=== PATIENT | male | born 1955 ===

== ENCOUNTER 2022-10-05 17:46 | Emergency (ER) | payer MEDICARE, OTHER ==
[2022-10-05] MEDS ORDERED: Sodium Chloride 0.9% 10 ML Syringe FLUSH PRN (18:30)
[2022-10-05 18:35] LABS: BASOPHILS PERCENT AUTO 0.3 % (0.0-1.0); EOSINOPHILS PERCENT AUTO 0.4 % (1.0-3.0); HEMATOCRIT 37.2 % (40.0-54.0); HEMOGLOBIN 12.9 g/dL (14.0-18.0); LYMPHOCYTES PERCENT AUTO 22.4 % (20.5-50.1); MEAN CORPUSCULAR HEMOGLOBIN 31.6 pg (27.0-34.0); MEAN CORPUSCULAR HGB CONC 34.7 g/dL (33.0-35.0); MEAN CORPUSCULAR VOLUME 91.2 fL (80-100); NEUTROPHILS PERCENT AUTO 67.9 % (42.2-75.2); PLATELET COUNT,PLT 376 10^3/uL (150-450); RED BLOOD CELL COUNT 4.08 10^6/uL (4.6-6.2); WHITE BLOOD CELL COUNT,WBC 9.3 10^3/uL (5.0-10.0)
[2022-10-05 18:54] LABS: A/G RATIO 1.1; ALBUMIN 3.9 g/dL (3.4-5.0); ANION GAP 14.6 mEq/L (7-13); BILIRUBIN TOTAL 0.6 mg/dL (0.2-1.0); BUN/CREATININE RATIO 9.9 (No establ ref range); CALCIUM 8.7 mg/dL (8.5-10.1); CREATININE 1.01 mg/dL (0.70-1.30); EST CRCL DRUG DOSING (CG) 77.9 mL/min; MAGNESIUM 1.9 mg/dL (1.8-2.4); POTASSIUM,K 3.6 mmol/L (3.5-5.1); PROTEIN TOTAL,TP 7.5 g/dL (6.4-8.2); TSH ULTRASENSITIVE 1.5 uIU/mL (0.36-3.74)
[2022-10-05 18:57] LABS: APPEARANCE,URINE CLEAR (CLEAR); BILIRUBIN,URINE NEGATIVE (NEGATIVE); COLOR,URINE YELLOW (YELLOW); GLUCOSE,URINE NEGATIVE (NEGATIVE); KETONES,URINE NEGATIVE (NEGATIVE); LEUKOCYTE ESTERASE,URINE NEGATIVE (NEGATIVE); NITRITE,URINE NEGATIVE (NEGATIVE); OCCULT BLOOD,URINE NEGATIVE (NEGATIVE); PROTEIN,URINE NEGATIVE (NEGATIVE)
[2022-10-05] MEDS ORDERED: Metoprolol Tartrate 5 MG/5 ML SDV IVPUSH ONE (19:02)
[2022-10-05] MEDS ORDERED: Labetalol 20 MG/4 ML Syringe IVPUSH ONE ×2 (19:39→20:42)
[2022-10-05] MEDS ORDERED: Sodium Chloride 0.9% 1,000 ML IV ONE (19:39)
== END 2022-10-05 21:17 | disposition home or self-care (01) ==
LOC: DL.ED 17:46
DX: I15.9 Secondary hypertension, unspecified (principal); Z87.891 Personal history of nicotine dependence
CPT/HCPCS: 36415; 71045; 80053; 81003; 83735; 84443; 84484; 85025; 85379; 93005; 93010; 96361; 96374; 96375; 96376; 99284; J3490; J7030

== ENCOUNTER 2022-10-06 07:55 | Emergency (ER) | payer MEDICARE, OTHER | END 2022-10-06 09:19 | disposition home or self-care (01) | LOC: DL.ED 07:55 | DX: I15.9 Secondary hypertension, unspecified (principal); G44.89 Other headache syndrome; D64.9 Anemia, unspecified; Z86.16 Personal history of COVID-19; Z79.899 Other long term (current) drug therapy | CPT/HCPCS: 99283 ==

== ENCOUNTER 2022-10-31 09:53 | Emergency (ER) | payer MEDICARE, OTHER | END 2022-10-31 12:15 | disposition home or self-care (01) | LOC: DL.ED 09:53 | DX: I15.9 Secondary hypertension, unspecified (principal); Z79.899 Other long term (current) drug therapy; Z86.16 Personal history of COVID-19 | CPT/HCPCS: 93976; 99284 ==

== ENCOUNTER 2022-12-03 19:25 | Emergency (ER) | payer MEDICARE, OTHER ==
[2022-12-03] MEDS ORDERED: Sodium Chloride 0.9% 10 ML Syringe FLUSH PRN (19:59)
[2022-12-03 20:05] LABS: BASOPHILS PERCENT AUTO 0.6 % (0.0-1.0); EOSINOPHILS PERCENT AUTO 1.2 % (1.0-3.0); HEMOGLOBIN 12.4 g/dL (14.0-18.0); MEAN CORPUSCULAR HEMOGLOBIN 30.8 pg (27.0-34.0); MEAN CORPUSCULAR HGB CONC 33.5 g/dL (33.0-35.0); MEAN CORPUSCULAR VOLUME 91.8 fL (80-100); MONOCYTES PERCENT AUTO 10.6 % (2-8); NEUTROPHILS PERCENT AUTO 58.6 % (42.2-75.2); PLATELET COUNT,PLT 361 10^3/uL (150-450); RED BLOOD CELL COUNT 4.03 10^6/uL (4.6-6.2); WHITE BLOOD CELL COUNT,WBC 6.6 10^3/uL (5.0-10.0)
[2022-12-03 20:23] LABS: A/G RATIO 1.1; ANION GAP 13.9 mEq/L (7-13); BILIRUBIN TOTAL 0.2 mg/dL (0.2-1.0); BUN/CREATININE RATIO 7.7 (No establ ref range); CALCIUM 8.8 mg/dL (8.5-10.1); CREATININE 1.17 mg/dL (0.70-1.30); EST CRCL DRUG DOSING (CG) 67.25 mL/min; POTASSIUM,K 3.9 mmol/L (3.5-5.1); PROTEIN TOTAL,TP 7.7 g/dL (6.4-8.2)
== END 2022-12-03 20:46 | disposition home or self-care (01) ==
LOC: DL.ED 19:25
DX: R07.89 Other chest pain (principal); E78.00 Pure hypercholesterolemia, unspecified; I10 Essential (primary) hypertension; Z86.16 Personal history of COVID-19; Z79.899 Other long term (current) drug therapy
CPT/HCPCS: 36415; 80053; 84484; 85025; 93005; 99285; J3490

== ENCOUNTER 2023-05-10 07:27 | Emergency (ER) | payer MEDICARE, OTHER | END 2023-05-10 08:36 | disposition home or self-care (01) | LOC: DL.ED 07:27 | DX: I10 Essential (primary) hypertension (principal); E78.00 Pure hypercholesterolemia, unspecified; Z86.16 Personal history of COVID-19; Z79.899 Other long term (current) drug therapy; Z87.891 Personal history of nicotine dependence | CPT/HCPCS: 93010; 99283 ==

== ENCOUNTER 2023-06-12 10:21 | Emergency (ER) | payer MEDICARE, OTHER ==
[2023-06-12] MEDS ORDERED: Albuterol/Ipratropium 3.0-0.5 MG/3 ML Neb Soln ONE (10:39)
== END 2023-06-12 11:30 | disposition left against medical advice (07) ==
LOC: DL.ED 10:21
DX: Z53.21 Procedure and treatment not carried out due to patient leaving prior to being seen by health care provider (principal)

== ENCOUNTER 2024-09-11 21:31 | Emergency (ER) | payer MEDICARE, OTHER ==
[2024-09-11 22:15] LABS: BASOPHILS PERCENT AUTO 0.8 % (0.0-1.0); HEMATOCRIT 37.7 % (40.0-54.0); HEMOGLOBIN 12.7 g/dL (14.0-18.0); LYMPHOCYTES PERCENT AUTO 42.3 % (20.5-50.1); MEAN CORPUSCULAR HEMOGLOBIN 31.1 pg (27.0-34.0); MEAN CORPUSCULAR HGB CONC 33.7 g/dL (33.0-35.0); MEAN CORPUSCULAR VOLUME 92.4 fL (80-100); MONOCYTES PERCENT AUTO 12.5 % (2-8); NEUTROPHILS PERCENT AUTO 41.4 % (42.2-75.2); PLATELET COUNT,PLT 374 10^3/uL (150-450); RED BLOOD CELL COUNT 4.08 10^6/uL (4.6-6.2); WHITE BLOOD CELL COUNT,WBC 5.9 10^3/uL (5.0-10.0)
[2024-09-11] MEDS: cloNIDine 0.1 MG Tab PO ONE (22:27)
[2024-09-11] MEDS: Aspirin 81 MG Tab.Chew PO ONE (22:28)
[2024-09-11 22:31] LABS: ALBUMIN 3.7 g/dL (3.4-5.0); ANION GAP 12.7 mEq/L (7-13); BILIRUBIN TOTAL 0.3 mg/dL (0.2-1.0); BUN/CREATININE RATIO 8.8 (No establ ref range); CALCIUM 9.1 mg/dL (8.5-10.1); CREATININE 1.14 mg/dL (0.70-1.30); EST CRCL DRUG DOSING (CG) 67.12 mL/min; MAGNESIUM 2.1 mg/dL (1.8-2.4); POTASSIUM,K 3.7 mmol/L (3.5-5.1); PROTEIN TOTAL,TP 7.4 g/dL (6.4-8.2)
== END 2024-09-11 23:32 | disposition home or self-care (01) ==
LOC: DL.ED 21:31
DX: I11.9 Hypertensive heart disease without heart failure (principal); E78.00 Pure hypercholesterolemia, unspecified; Z79.899 Other long term (current) drug therapy; Z86.16 Personal history of COVID-19
CPT/HCPCS: 36415; 71045; 80053; 83735; 83880; 84484; 85025; 85379; 93005; 93010; 99284; 99285; A9270-GY